=== PATIENT | female | born 1945 | race Caucasian/White ===

== ENCOUNTER 2019-08-03 12:57 | Inpatient (IN) | payer MEDICARE, OTHER ==
[~2019-08-03] VITALS: Ht 160 cm; Wt 59.9 kg
[2019-08-03] MEDS ORDERED: DICL100G16 TP (13:35)
[2019-08-03] MEDS ORDERED: CLOT15CR4 TP (13:35)
[2019-08-03] MEDS ORDERED: HALO10TA13 PO (13:35)
[2019-08-03] MEDS ORDERED: FURO20TA4 PO (13:35)
[2019-08-03] MEDS ORDERED: CLON0.5T4 PO (13:35)
[2019-08-03] MEDS ORDERED: CALC-898 PO (13:35)
[2019-08-03] MEDS ORDERED: ARIP10TA9 PO (13:35)
[2019-08-03] MEDS ORDERED: PANT20TA3 PO (13:35)
[2019-08-03] MEDS ORDERED: OFLO5DRO3 OP (13:35)
[2019-08-03] MEDS ORDERED: DOCU-270 PO (13:35)
[2019-08-03] MEDS ORDERED: MULT1TAB73 PO (13:35)
[2019-08-03] MEDS ORDERED: BROM3DRO OP (13:35)
[2019-08-03] MEDS ORDERED: ONDA8TAB65 PO (13:35)
[2019-08-03] MEDS ORDERED: PRED5DRO24 OP (13:35)
[2019-08-03] MEDS ORDERED: DIVA500T54 PO (13:35)
[2019-08-03] MEDS ORDERED: FOLI0.4T2 PO (13:35)
--- NOTE | 2019-08-03 14:02 | NUR ---
pt ambulated to bathroom with steady gait.
--- NOTE | 2019-08-03 16:14 | NUR ---
pt transfered to floor in stable condition.
--- NOTE | 2019-08-03 16:25 | NUR ---
Gps/Section Beamer- Patient received from ER via chichi quezada, oriented x2. Upon face to face interaction with patient, denied any thought of anyone sticking a hypodermic needles in someone else vagina at her facility. Alert, oriented x2, she thinks this 1s year 2021, claimed today is tuesday, During interview patient trying to answer questions whispering , which staff has difficulty understanding her. 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 Routine admission care done.
[2019-08-03] MEDS ORDERED: MAG HYDROX/AL HYDROX/SIMETH 30 ML LIQUID UDC PO PRN (17:15)
[2019-08-03] MEDS ORDERED: MAGNESIUM HYDROXIDE 30 ML LIQUID UDC PO PRN (17:15)
[2019-08-03] MEDS ORDERED: BLOOD SUGAR DIAGNOSTIC 1 EACH STRIP VI ONE (17:15)
[2019-08-03] MEDS ORDERED: CLONAZEPAM 0.5 MG TABLET PO PRN (17:15)
[2019-08-03] MEDS ORDERED: TEMAZEPAM 7.5 MG CAPSULE PO PRN (17:15)
[2019-08-03 21:20] VITALS: BP 110/77
--- NOTE | 2019-08-03 22:00 | NUR ---
received to care, wandering the hallway, talking to self, appearing distracted by internal stimuli. no interactions noted with peers or staff. pt was malodorous and disheveled looking. initially she refused to be assisted to the shower, but eventually agreed. after the shower, a snack was given, and she went to sleep. as of 2200, she remains asleep. no distress noted. will continue to monitor closely.
--- NOTE | 2019-08-04 06:00 | NUR ---
slept 5.25 hours. is now awake. remains calm. no distress noted.
[2019-08-04 07:30] VITALS: BP 138/89
[2019-08-04] MEDS: HALOPERIDOL 5 MG TABLET PO SCH ×2 (12:35→17:35)
[2019-08-04] MEDS: DIVALPROEX 500 MG TABLET.DR PO SCH ×2 (12:35→21:00)
[2019-08-04 16:00] VITALS: BP 127/68
--- NOTE | 2019-08-04 16:40 | NUR ---
Gps/Solar Electric/Photovoltaic Installer- Med. records faxed to pharmacy as requested.
[2019-08-04] MEDS ORDERED: OFLOXACIN OP SCH (17:00)
[2019-08-04] MEDS: DOCUSATE SODIUM 100 MG CAPSULE PO SCH (17:35)
[2019-08-04] MEDS: CIPROFLOXACIN 0.3% OPHT DROP 2.5 ML BOTTLE LEFTEYE SCH ×2 (17:54→20:04)
[2019-08-04] MEDS: prednisoLONE ACET 1% OPHT DROP 5 ML BOTTLE LEFTEYE SCH ×2 (17:54→20:04)
[2019-08-04] MEDS: KETOROLAC OPTHALMIC LEFTEYE SCH ×2 (17:54→20:04)
[2019-08-04 20:00] VITALS: BP 139/70
[2019-08-05 07:30] VITALS: BP 146/78
[2019-08-05] MEDS: HALOPERIDOL 5 MG TABLET PO SCH ×2 (08:41→16:18)
[2019-08-05] MEDS: FUROSEMIDE 20 MG TABLET PO SCH (08:41)
[2019-08-05] MEDS: MULTIVITAMINS,THERAPEUTIC TABLET PO SCH (08:41)
[2019-08-05] MEDS: FOLIC ACID 1 MG TABLET PO SCH (08:41)
[2019-08-05] MEDS: DOCUSATE SODIUM 100 MG CAPSULE PO SCH ×2 (08:41→16:18)
[2019-08-05] MEDS: DIVALPROEX 500 MG TABLET.DR PO SCH ×2 (08:41→20:08)
[2019-08-05] MEDS: prednisoLONE ACET 1% OPHT DROP 5 ML BOTTLE LEFTEYE SCH ×4 (08:42→20:08)
[2019-08-05] MEDS: CIPROFLOXACIN 0.3% OPHT DROP 2.5 ML BOTTLE LEFTEYE SCH ×4 (08:42→20:08)
[2019-08-05] MEDS: KETOROLAC OPTHALMIC LEFTEYE SCH ×4 (08:42→20:11)
[2019-08-05] MEDS: CALCIUM CITRA-VITAMIN D 315 MG-250 UNITS TABLET PO SCH (08:42)
[2019-08-05] MEDS ORDERED: FOLIC ACID 0.4 MG TABLET PO SCH (09:00)
[2019-08-05] MEDS ORDERED: Medication Not On Formulary EA (Multivitamins (Multivitamin) 1 EACH) PO SCH (09:00)
[2019-08-05 14:55] LABS: BASOPHILS % (AUTO) 0.8 % (0.0-2.0); EOSINOPHILS # (AUTO) 0.5 K/uL (0.0-0.7); EOSINOPHILS % (AUTO) 9.2 % (0.0-7.0); HEMOGLOBIN 13.5 g/dL (10.9-14.3); LYMPHOCYTES % (AUTO) 19.5 % (20.5-51.5); MEAN CORPUSCULAR HEMOGLOBIN 31.4 uug (24.7-32.8); MEAN CORPUSCULAR HGB CONC 34 g/dL (32.3-35.6); MEAN CORPUSCULAR VOLUME 93.2 fL (75.5-95.3); MONOCYTES # (AUTO) 0.6 K/uL (2.0-10.0); MONOCYTES % (AUTO) 11.5 % (0.0-11.0); NEUTROPHILS # (AUTO) 2.9 K/uL (1.8-8.9); PLATELET COUNT (AUTO) 246 K/uL (179-408); RED BLOOD CELL COUNT(AUTO) 4.29 MIL/uL (3.63-4.92)
[2019-08-05 15:06] LABS: CREATININE 0.8 mg/dL (0.6-1.3); POTASSIUM 3.8 mmol/L (3.5-5.1)
[2019-08-05 15:17] LABS: THYROID STIMULATING HORMONE 1.755 mIU/mL (0.358-3.740)
[2019-08-05 15:18] LABS: BILIRUBIN,TOTAL 0.2 mg/dL (0.2-1.0); MAGNESIUM 2.2 mg/dL (1.8-2.4); PHOSPHOROUS 3.3 mg/dL (2.5-4.9); TOTAL PROTEIN, SERUM 6.8 g/dL (6.4-8.2)
[2019-08-05 16:00] VITALS: BP 134/71
--- NOTE | 2019-08-05 17:00 | NUR ---
Gps/Sewing Machine Repairer- Patient was angry when awakened pt. to eat dinner, claimed she already ate and yelling at the staff, claimed" i dont want to be called liar, i ate already". Patient refused to eat dinner, thinking she already ate, and tried to explained she has not eaten yet, gets very angry at the staff.
[2019-08-05 19:45] VITALS: BP 141/71
[2019-08-06] MEDS ORDERED: KETOROLAC 0.5% OPHT DROP 3 ML BOTTLE ONE (07:19)
[2019-08-06] MEDS: MULTIVITAMINS,THERAPEUTIC TABLET PO SCH (08:33)
[2019-08-06] MEDS: DIVALPROEX 500 MG TABLET.DR PO SCH ×2 (08:33→20:18)
[2019-08-06] MEDS: DOCUSATE SODIUM 100 MG CAPSULE PO SCH ×2 (08:33→17:23)
[2019-08-06] MEDS: FOLIC ACID 1 MG TABLET PO SCH (08:33)
[2019-08-06] MEDS: prednisoLONE ACET 1% OPHT DROP 5 ML BOTTLE LEFTEYE SCH ×4 (08:34→20:18)
[2019-08-06] MEDS: FUROSEMIDE 20 MG TABLET PO SCH (08:34)
[2019-08-06] MEDS: HALOPERIDOL 5 MG TABLET PO SCH ×2 (08:34→17:23)
[2019-08-06] MEDS: CIPROFLOXACIN 0.3% OPHT DROP 2.5 ML BOTTLE LEFTEYE SCH ×4 (08:34→20:18)
[2019-08-06] MEDS: KETOROLAC OPTHALMIC LEFTEYE SCH ×4 (08:34→20:18)
[2019-08-06] MEDS: CALCIUM CITRA-VITAMIN D 315 MG-250 UNITS TABLET PO SCH (08:35)
[2019-08-06 08:36] VITALS: BP 112/86
--- NOTE | 2019-08-06 10:26 | NUR ---
Family Contact: Mime Artist left a voicemail and is waiting for a call back from Molly Moseley ([phone]) patient's next of kin.
--- NOTE | 2019-08-06 10:55 | NUR ---
Initial Discharge Note: [place] [address] ([phone]). drywall metal stud worker spoke with Willow admissions advisor at the facility who stated that patient is welcome back once stable. drywall metal stud worker will continue to work with patient, family, and MD to ensure a safe and proper discharge plan.
--- NOTE | 2019-08-06 10:56 | NUR ---
Discharge Planning: core worker spoke with Willow the staff development coordinator at [address] [address] ([phone]) who stated that the patient will be accepted back once stable.
--- NOTE | 2019-08-06 13:14 | NUR ---
Social Work Note/Family Contact: trolley worker receive call back from Molly ([phone]). trolley worker gathered more information in regard to patient. Per Molly, she expressed that she would want patient to return back to [facility] upon discharge. trolley worker informed Molly and educated her on what a 5150 hold is.
[2019-08-06 15:57] VITALS: BP 154/89
[2019-08-06 20:20] VITALS: BP 136/78
--- NOTE | 2019-08-07 06:34 | NUR ---
GPS: Pt refused blood drawing scheduled for this a.m.(Valproic acid level) despite explanation of importance. Pt.started screaming,agitated and wanting to be left alone.
[2019-08-07 07:30] VITALS: BP 159/81
[2019-08-07] MEDS: DIVALPROEX 500 MG TABLET.DR PO SCH ×2 (08:19→20:21)
[2019-08-07] MEDS: FOLIC ACID 1 MG TABLET PO SCH (08:19)
[2019-08-07] MEDS: CALCIUM CITRA-VITAMIN D 315 MG-250 UNITS TABLET PO SCH (08:19)
[2019-08-07] MEDS: FUROSEMIDE 20 MG TABLET PO SCH (08:19)
[2019-08-07] MEDS: HALOPERIDOL 5 MG TABLET PO SCH ×2 (08:19→16:45)
[2019-08-07] MEDS: DOCUSATE SODIUM 100 MG CAPSULE PO SCH ×2 (08:19→16:45)
[2019-08-07] MEDS: MULTIVITAMINS,THERAPEUTIC TABLET PO SCH (08:20)
[2019-08-07] MEDS: KETOROLAC OPTHALMIC LEFTEYE SCH ×4 (08:20→20:24)
[2019-08-07] MEDS: prednisoLONE ACET 1% OPHT DROP 5 ML BOTTLE LEFTEYE SCH ×4 (08:21→20:24)
[2019-08-07] MEDS: CIPROFLOXACIN 0.3% OPHT DROP 2.5 ML BOTTLE LEFTEYE SCH ×4 (08:21→20:24)
--- NOTE | 2019-08-07 10:08 | NUR ---
Firearms Report (DOJ): [employer]p [employer] completed and submitted a DPJ firearms report for 5150 danger to others and grave disability certification. A copy of report has been placed in patient chart.
[2019-08-07 16:02] VITALS: BP 114/81
[2019-08-07 20:00] VITALS: BP 139/96
--- NOTE | 2019-08-07 22:30 | NUR ---
received to care, pacing intermittently, talking to self, but pleasant upon approach. compliant with medications and staff direction. no interactions noted with peers. as of 2229, she appears to be asleep. no distress noted. will continue to monitor closely.
--- NOTE | 2019-08-08 06:00 | NUR ---
slept 6.75 hours. continues to sleep. no distress noted.
[2019-08-08 07:30] VITALS: BP 132/63
[2019-08-08] MEDS: DOCUSATE SODIUM 100 MG CAPSULE PO SCH ×2 (08:30→16:31)
[2019-08-08] MEDS: CALCIUM CITRA-VITAMIN D 315 MG-250 UNITS TABLET PO SCH (08:30)
[2019-08-08] MEDS: HALOPERIDOL 5 MG TABLET PO SCH ×3 (08:30→16:31)
[2019-08-08] MEDS: FOLIC ACID 1 MG TABLET PO SCH (08:30)
[2019-08-08] MEDS: MULTIVITAMINS,THERAPEUTIC TABLET PO SCH (08:30)
[2019-08-08] MEDS: DIVALPROEX 500 MG TABLET.DR PO SCH ×2 (08:30→20:27)
[2019-08-08] MEDS: FUROSEMIDE 20 MG TABLET PO SCH (08:30)
[2019-08-08] MEDS: KETOROLAC OPTHALMIC LEFTEYE SCH ×4 (08:31→20:27)
[2019-08-08] MEDS: prednisoLONE ACET 1% OPHT DROP 5 ML BOTTLE LEFTEYE SCH ×4 (08:31→20:27)
[2019-08-08] MEDS: CIPROFLOXACIN 0.3% OPHT DROP 2.5 ML BOTTLE LEFTEYE SCH ×4 (08:31→20:26)
[2019-08-08] MEDS ORDERED: HALOPERIDOL 2 MG TABLET PO SCH (13:00)
[2019-08-08 16:00] VITALS: BP 107/56
[2019-08-08 20:10] VITALS: BP 137/73
--- NOTE | 2019-08-08 22:00 | NUR ---
received to care, talking to self, but pleasant upon approach. compliant with medications and staff direction. no interactions noted with peers. as of 2199, she appears to be asleep. no distress noted. will continue to monitor closely.
--- NOTE | 2019-08-09 05:56 | NUR ---
slept 8.5 hours. is now awake, in her room. no distress noted.
[2019-08-09 07:18] LABS: BASOPHILS # (AUTO) 0.1 K/uL (0.0-8.0); BASOPHILS % (AUTO) 1.4 % (0.0-2.0); EOSINOPHILS # (AUTO) 0.3 K/uL (0.0-0.7); EOSINOPHILS % (AUTO) 5.6 % (0.0-7.0); HEMATOCRIT 38.1 % (31.2-41.9); HEMOGLOBIN 12.7 g/dL (10.9-14.3); LYMPHOCYTES # (AUTO) 0.9 K/uL (20.0-40.0); LYMPHOCYTES % (AUTO) 19.7 % (20.5-51.5); MEAN CORPUSCULAR HEMOGLOBIN 30.4 uug (24.7-32.8); MEAN CORPUSCULAR HGB CONC 33 g/dL (32.3-35.6); MEAN CORPUSCULAR VOLUME 91.4 fL (75.5-95.3); MONOCYTES # (AUTO) 0.5 K/uL (2.0-10.0); MONOCYTES % (AUTO) 10.2 % (0.0-11.0); NEUTROPHILS # (AUTO) 2.9 K/uL (1.8-8.9); NEUTROPHILS % (AUTO) 63.1 % (38.5-71.5); PLATELET COUNT (AUTO) 219 K/uL (179-408); RED BLOOD CELL COUNT(AUTO) 4.17 MIL/uL (3.63-4.92); WHITE BLOOD COUNT (AUTO) 4.6 K/uL (3.8-11.8)
[2019-08-09 07:31] LABS: BILIRUBIN,TOTAL 0.4 mg/dL (0.2-1.0); CREATININE 0.7 mg/dL (0.6-1.3); POTASSIUM 3.8 mmol/L (3.5-5.1); TOTAL PROTEIN, SERUM 6.6 g/dL (6.4-8.2)
[2019-08-09 07:55] VITALS: BP 147/93
--- NOTE | 2019-08-09 08:14 | NUR ---
Discharge Planning: Instructor Dramatic Arts received a call from Nisha ([phone]) Carousel Attendant at [facility]. Nisha inquired about getting a CT scan for the patient, this real estate underwriter directed the request to nursing who stated they will ask the doctor. Nisha also stated that she will be providing transportation for the patient upon discharge back to her board and care.
[2019-08-09] MEDS: HALOPERIDOL 5 MG TABLET PO SCH ×3 (09:04→17:36)
[2019-08-09] MEDS: DIVALPROEX 500 MG TABLET.DR PO SCH ×2 (09:04→21:15)
[2019-08-09] MEDS: FOLIC ACID 1 MG TABLET PO SCH (09:04)
[2019-08-09] MEDS: MULTIVITAMINS,THERAPEUTIC TABLET PO SCH (09:05)
[2019-08-09] MEDS: FUROSEMIDE 20 MG TABLET PO SCH (09:05)
[2019-08-09] MEDS: DOCUSATE SODIUM 100 MG CAPSULE PO SCH ×2 (09:05→17:36)
[2019-08-09] MEDS: CIPROFLOXACIN 0.3% OPHT DROP 2.5 ML BOTTLE LEFTEYE SCH ×4 (09:06→21:17)
[2019-08-09] MEDS: prednisoLONE ACET 1% OPHT DROP 5 ML BOTTLE LEFTEYE SCH ×4 (09:06→21:16)
[2019-08-09] MEDS: KETOROLAC OPTHALMIC LEFTEYE SCH ×4 (09:06→21:16)
[2019-08-09] MEDS: CALCIUM CITRA-VITAMIN D 315 MG-250 UNITS TABLET PO SCH (09:13)
--- NOTE | 2019-08-09 14:41 | NUR ---
Social Work Note/PC Hearing Notification: ironworker foreman contacted patients family Barnes, ([phone]) and notified patients probable cause of hearing today through voicemail.
[2019-08-09 17:05] VITALS: BP 127/77
[2019-08-09 20:28] VITALS: BP 138/74
--- NOTE | 2019-08-09 22:00 | NUR ---
received to care, pacing the hallway, talkin g to self, but pleasant upon approach. compliant with medications and staff direction. no interactions noted with peers. as of 2200, she appears to be asleep. no distress noted. will continue to monitor closely.
--- NOTE | 2019-08-10 06:00 | NUR ---
slept 8.15 hours. continues to sleep. no distress noted.
[2019-08-10 07:30] VITALS: BP 135/56
--- NOTE | 2019-08-10 08:30 | NUR ---
Confused, angry and agitated. Redirected and compliant with taking medications
[2019-08-10] MEDS: CIPROFLOXACIN 0.3% OPHT DROP 2.5 ML BOTTLE LEFTEYE SCH ×2 (08:40→12:29)
[2019-08-10] MEDS: KETOROLAC OPTHALMIC LEFTEYE SCH ×2 (08:41→12:30)
[2019-08-10] MEDS: DIVALPROEX 500 MG TABLET.DR PO SCH ×2 (08:41→20:53)
[2019-08-10] MEDS: prednisoLONE ACET 1% OPHT DROP 5 ML BOTTLE LEFTEYE SCH ×2 (08:41→12:30)
[2019-08-10] MEDS: DOCUSATE SODIUM 100 MG CAPSULE PO SCH ×2 (08:41→16:33)
[2019-08-10] MEDS: FOLIC ACID 1 MG TABLET PO SCH (08:41)
[2019-08-10] MEDS: CALCIUM CITRA-VITAMIN D 315 MG-250 UNITS TABLET PO SCH (08:41)
[2019-08-10] MEDS: HALOPERIDOL 5 MG TABLET PO SCH ×3 (08:42→16:34)
[2019-08-10] MEDS: MULTIVITAMINS,THERAPEUTIC TABLET PO SCH (08:42)
[2019-08-10] MEDS: FUROSEMIDE 20 MG TABLET PO SCH (08:42)
--- NOTE | 2019-08-10 11:10 | NUR ---
Patient calmer when talking with Dr. Alanis.
[2019-08-10] MEDS: DIVALPROEX 250 MG TABLET.DR PO SCH (12:31)
--- NOTE | 2019-08-10 13:19 | NUR ---
For CT scan of the head, initially refused it but agreeable and calm after explanation. CT scan of head done
[2019-08-10 15:43] VITALS: BP 107/47
--- NOTE | 2019-08-10 16:22 | NUR ---
Family Contact: Rn Research aunt Molly Moseley ([phone]) regarding patient's current mental status and treatment plan. Molly sounded relieved about the care pt is receiving here at the hospital and was very thankful. This greeting card writer will update Molly with discharge plans once known.
--- NOTE | 2019-08-10 17:46 | NUR ---
Sleeping most of the time, easily aroused, compliant in taking medication
[2019-08-10 20:07] VITALS: BP 125/64
--- NOTE | 2019-08-10 21:23 | NUR ---
Patient received to care. Alert and oriented x 1. Refusing to get out bed. Compliant with medications. Will continue to monitor.
[2019-08-11 07:30] VITALS: BP 144/57
[2019-08-11] MEDS: FOLIC ACID 1 MG TABLET PO SCH (08:33)
[2019-08-11] MEDS: HALOPERIDOL 5 MG TABLET PO SCH ×3 (08:33→16:31)
[2019-08-11] MEDS: FUROSEMIDE 20 MG TABLET PO SCH (08:33)
[2019-08-11] MEDS: CALCIUM CITRA-VITAMIN D 315 MG-250 UNITS TABLET PO SCH (08:33)
[2019-08-11] MEDS: MULTIVITAMINS,THERAPEUTIC TABLET PO SCH (08:33)
[2019-08-11] MEDS: DIVALPROEX 500 MG TABLET.DR PO SCH ×2 (08:33→20:02)
[2019-08-11] MEDS: DOCUSATE SODIUM 100 MG CAPSULE PO SCH ×2 (08:33→16:31)
[2019-08-11] MEDS: DIVALPROEX 250 MG TABLET.DR PO SCH (12:44)
[2019-08-11 16:50] VITALS: BP 139/62
[2019-08-11 19:58] VITALS: BP 123/74
--- NOTE | 2019-08-12 05:47 | NUR ---
Patient slept 8.15 hours. Up once during the night looking for a' friend," pacing the barakat. Then back to bed. No issues, no distress.
[2019-08-12 07:30] VITALS: BP 146/65
[2019-08-12] MEDS: DOCUSATE SODIUM 100 MG CAPSULE PO SCH ×2 (08:21→16:27)
[2019-08-12] MEDS: HALOPERIDOL 5 MG TABLET PO SCH ×3 (08:21→16:27)
[2019-08-12] MEDS: FUROSEMIDE 20 MG TABLET PO SCH (08:21)
[2019-08-12] MEDS: MULTIVITAMINS,THERAPEUTIC TABLET PO SCH (08:21)
[2019-08-12] MEDS: DIVALPROEX 500 MG TABLET.DR PO SCH ×2 (08:21→20:27)
[2019-08-12] MEDS: CALCIUM CITRA-VITAMIN D 315 MG-250 UNITS TABLET PO SCH (08:21)
[2019-08-12] MEDS: FOLIC ACID 1 MG TABLET PO SCH (08:21)
[2019-08-12] MEDS: DIVALPROEX 250 MG TABLET.DR PO SCH (12:15)
[2019-08-12 15:50] VITALS: BP 170/78
[2019-08-12 20:00] VITALS: BP 158/70
--- NOTE | 2019-08-12 22:00 | NUR ---
received to care, highly visible on unit, talking to self, but pleasant upon approach. compliant with medications and staff direction. as of 2199, she remains awake, coming to nurses station, intermittently, talking about her friend whom she missed. emotional support provided. no distress noted. will continue to monitor closely.
--- NOTE | 2019-08-13 | NUR ---
PRN restoril, given for insomnia/restlessness
--- NOTE | 2019-08-13 00:35 | NUR ---
appears to be asleep. no distress noted.
--- NOTE | 2019-08-13 06:00 | NUR ---
slept 6.0 hours. continues to sleep. no distress noted.
[2019-08-13 08:00] VITALS: BP 147/72
[2019-08-13] MEDS: CALCIUM CITRA-VITAMIN D 315 MG-250 UNITS TABLET PO SCH (08:29)
[2019-08-13] MEDS: HALOPERIDOL 5 MG TABLET PO SCH ×3 (08:29→16:45)
[2019-08-13] MEDS: FUROSEMIDE 20 MG TABLET PO SCH (08:29)
[2019-08-13] MEDS: DIVALPROEX 500 MG TABLET.DR PO SCH ×2 (08:29→20:29)
[2019-08-13] MEDS: DOCUSATE SODIUM 100 MG CAPSULE PO SCH ×2 (08:29→16:45)
[2019-08-13] MEDS: FOLIC ACID 1 MG TABLET PO SCH (08:29)
[2019-08-13] MEDS: MULTIVITAMINS,THERAPEUTIC TABLET PO SCH (08:29)
[2019-08-13] MEDS: DIVALPROEX 250 MG TABLET.DR PO SCH (12:25)
[2019-08-13 15:46] VITALS: BP 105/63
[2019-08-13 20:00] VITALS: BP 127/64
--- NOTE | 2019-08-13 22:00 | NUR ---
received to care, lying in bed, pleasant upon approach. compliant with medications and staff direction. no interactions noted with peers. as of 2200, she appears to be asleep. no distress noted. will continue to monitor closely.
--- NOTE | 2019-08-14 06:00 | NUR ---
slept 6.25 hours, total. continues to sleep. no distress noted.
[2019-08-14 07:30] VITALS: BP 149/75
[2019-08-14] MEDS: FUROSEMIDE 20 MG TABLET PO SCH (08:16)
[2019-08-14] MEDS: MULTIVITAMINS,THERAPEUTIC TABLET PO SCH (08:16)
[2019-08-14] MEDS: DOCUSATE SODIUM 100 MG CAPSULE PO SCH ×2 (08:17→16:05)
[2019-08-14] MEDS: FOLIC ACID 1 MG TABLET PO SCH (08:17)
[2019-08-14] MEDS: DIVALPROEX 500 MG TABLET.DR PO SCH ×2 (08:17→20:04)
[2019-08-14] MEDS: HALOPERIDOL 5 MG TABLET PO SCH ×4 (08:17→16:06)
[2019-08-14] MEDS: CALCIUM CITRA-VITAMIN D 315 MG-250 UNITS TABLET PO SCH (08:17)
[2019-08-14] MEDS: DIVALPROEX 250 MG TABLET.DR PO SCH (12:18)
[2019-08-14 16:00] VITALS: BP 124/75
[2019-08-14 20:18] VITALS: BP 153/69
--- NOTE | 2019-08-15 05:43 | NUR ---
Patient slept 5.15 hours. Up once during the night at nurses station asking for paper. Patient is angry and very paranoid. Making statements " THE TRUTH IS I AM NOT CRAZY BUT ALL THESE PSYCHIATRISTS ALWAYS SAY I AM". "EVERYBODY IS ALWAYS LAUGHING AT ME, THAT IS THE TRUTH". Patient was yelling earlier , similar statements. Patient is now in bed sleeping. No acute distress noted.
[2019-08-15 07:30] VITALS: BP 131/58
[2019-08-15] MEDS: FUROSEMIDE 20 MG TABLET PO SCH (08:16)
[2019-08-15] MEDS: MULTIVITAMINS,THERAPEUTIC TABLET PO SCH (08:16)
[2019-08-15] MEDS: DIVALPROEX 500 MG TABLET.DR PO SCH ×2 (08:16→20:16)
[2019-08-15] MEDS: CALCIUM CITRA-VITAMIN D 315 MG-250 UNITS TABLET PO SCH (08:16)
[2019-08-15] MEDS: DOCUSATE SODIUM 100 MG CAPSULE PO SCH ×2 (08:16→16:01)
[2019-08-15] MEDS: HALOPERIDOL 5 MG TABLET PO SCH ×3 (08:16→16:01)
[2019-08-15] MEDS: FOLIC ACID 1 MG TABLET PO SCH (08:16)
[2019-08-15] MEDS: DIVALPROEX 250 MG TABLET.DR PO SCH (12:54)
[2019-08-15 15:41] VITALS: BP 127/65
[2019-08-15 20:25] VITALS: BP 142/63
[2019-08-16 07:53] VITALS: BP 134/60
[2019-08-16] MEDS: DIVALPROEX 500 MG TABLET.DR PO SCH (08:03)
[2019-08-16] MEDS: CALCIUM CITRA-VITAMIN D 315 MG-250 UNITS TABLET PO SCH (08:03)
[2019-08-16] MEDS: DOCUSATE SODIUM 100 MG CAPSULE PO SCH (08:03)
[2019-08-16] MEDS: FOLIC ACID 1 MG TABLET PO SCH (08:03)
[2019-08-16] MEDS: HALOPERIDOL 5 MG TABLET PO SCH (08:03)
[2019-08-16] MEDS: FUROSEMIDE 20 MG TABLET PO SCH (08:04)
[2019-08-16] MEDS: MULTIVITAMINS,THERAPEUTIC TABLET PO SCH (08:04)
--- NOTE | 2019-08-16 08:15 | NUR ---
Discharge Note: Patient [place] [address] ([phone]). Patients director of casework, Nisha Herrera from the [facility] ([phone]) will be providing transportation for the patient at 9:00am. Patient is alert and oriented x3-4, denies suicidal or homicidal ideation, and is aware and agreeable with discharge plans. Patients aunt, Molly Moseley ([phone]) has been made aware and is agreeable with discharge plans. Patient presents with calm mood and euthymic affect. The patient is unable to provide for self-care at this time, however, is willing to continue to accept care at the facility. Patient will follow-up at the facility with her psychiatrist Dr. Paniagua ([phone]) and her primary care physician Dr. Resendez ([phone]). Patient was provided with outpatient mental health resources to [facility] , and the National Suicide Prevention Lifeline .
--- NOTE | 2019-08-16 09:27 | NUR ---
DISCHARGE NOTES : RECEIVED PATIENT AOX2-3, COMPLIANT WITH MEDICATION, DENIES SI AND HI, PATIENT [place] [address] ([phone]). PATIENT HOME MEDICATION INSTRUCTION GIVEN TO THE PATIENT, PICKED UP BY SOLDER MAKING LABORER, GAVE PRESCRIPTION , PATIENT DISCHARGE FROM UNIT, DISCONTINUING HER HOLD, MADE AWARE
== END 2019-08-16 09:00 | DRG 885 ==
LOC: ER 12:57 → GPS 15:48
PROVIDERS: ADMIT Psychiatry & Neurology Psychiatry; ATTEND Internal Medicine
DX: F25.9 Schizoaffective disorder, unspecified (principal); F01.50 Vascular dementia, unspecified severity, without behavioral disturbance, psychotic disturbance, mood disturbance, and anxiety; K21.9 Gastro-esophageal reflux disease without esophagitis; I70.0 Atherosclerosis of aorta; Z79.899 Other long term (current) drug therapy; Z98.890 Other specified postprocedural states
CPT/HCPCS: 36415; 70030-TC; 70450; 71045; 80164; 83735; 84100; 84443; 85025; A4663; J2650; J3490